=== PATIENT | male | born 1960 | race Caucasian/White ===

== ENCOUNTER 2017-10-16 10:05 | Observation (INO) | payer OTHER ==
[2017-10-16 11:03] LABS: ADD MAN DIFF? NO
[2017-10-16 11:05] LABS: WHITE BLOOD COUNT 3.3 10^3/ul (4.8-10.8)
[2017-10-16 11:05] LABS: ABNORMAL IP MESSAGE 1; BASOPHILS % 0.3 % (0.0-2.0); EOSINOPHILS # 0.1 10^3/ul (0.0-0.5); HEMATOCRIT 34.4 % (42.0-52.0); HEMOGLOBIN 11.4 g/dl (14.0-18.0); LYMPHOCYTES # 0.6 10^3/ul (0.8-2.9); LYMPHOCYTES % 16.9 % (15.0-51.0); MEAN CORPUSCULAR HEMOGLOBIN 32.5 pg (29.0-33.0); MEAN CORPUSCULAR HGB CONC 33.1 g/dl (32.0-37.0); MEAN PLATELET VOLUME 10.2 fl (7.4-10.4); MONOCYTE # 0.3 10^3/ul (0.3-0.9); MONOCYTES % 7.7 % (0.0-11.0); NEUTROPHIL # 2.3 10^3/ul (1.6-7.5); NEUTROPHILS % 70.8 % (39.0-77.0); PLATELET COUNT 159 10^3/UL (140-415); POSITIVE DIFF @See below; RED BLOOD COUNT 3.51 10^6/ul (4.70-6.10); RED CELL DISTRIBUTION WIDTH 14.2 % (11.5-14.5)
[2017-10-16 11:27] LABS: INR 1.31; PROTIME 16.5 Sec (11.9-14.9); PT RATIO 1.3
[2017-10-16 11:28] LABS: ANION GAP 27 (8-16); BLOOD UREA NITROGEN 85 mg/dl (7-20); CARBON DIOXIDE 20 mmol/L (21-31); CHLORIDE 94 mmol/L (97-110); CREATININE 9.93 mg/dl (0.61-1.24); GLUCOSE 115 mg/dl (70-220); PARTIAL THROMBOPLASTIN TIME 32.6 Sec (25.0-35.0); POTASSIUM 5.6 mmol/L (3.5-5.1); SODIUM 135 mmol/L (135-144)
[2017-10-16] MEDS ORDERED: ONDANSETRON 4 MG INJ IV (13:00)
[2017-10-16] MEDS ORDERED: ACETAMINOPHEN 325 MG TAB PO ×2 (13:00→13:30)
[2017-10-16] MEDS ORDERED: NACL 0.9% 3 ML SYG IV (13:30)
[2017-10-16] MEDS ORDERED: GLUCOSE GEL 15 GRAM TUBE BUCCAL (17:00)
[2017-10-16] MEDS ORDERED: DEXTROSE 50% 50 ML SYRINGE IV ×2 (17:00)
[2017-10-16] MEDS ORDERED: GLUCOSE GEL 15 GRAM TUBE PO ×2 (17:00)
[2017-10-16] MEDS ORDERED: GLUCAGON 1 MG INJ IM (17:00)
[2017-10-16] MEDS: INSULIN ASPART [NOVOLOG] 3 ML PEN SC ×3 (18:00→21:30)
[2017-10-16] MEDS: SEVELAMER 800 MG TAB PO (21:22)
[2017-10-16] MEDS: NIFEdipine (XL) 60 MG TAB PO (21:23)
[2017-10-17] MEDS ORDERED: hydrALAzine 20 MG INJ
[2017-10-17] MEDS: hydrALAzine 20 MG INJ IV (00:49)
[2017-10-17] MEDS: ACCU-CHEK XX (02:00)
[2017-10-17 07:21] LABS: ADD MAN DIFF? NO
[2017-10-17 07:23] LABS: ABNORMAL IP MESSAGE 1; BASOPHILS % 0.6 % (0.0-2.0); EOSINOPHILS # 0.1 10^3/ul (0.0-0.5); EOSINOPHILS % 2.9 % (0.0-7.0); HEMATOCRIT 36.1 % (42.0-52.0); HEMOGLOBIN 11.9 g/dl (14.0-18.0); LYMPHOCYTES # 0.4 10^3/ul (0.8-2.9); LYMPHOCYTES % 10.9 % (15.0-51.0); MEAN PLATELET VOLUME 10.6 fl (7.4-10.4); MONOCYTE # 0.3 10^3/ul (0.3-0.9); MONOCYTES % 7.4 % (0.0-11.0); NEUTROPHIL # 2.6 10^3/ul (1.6-7.5); NEUTROPHILS % 77.6 % (39.0-77.0); PLATELET COUNT 180 10^3/UL (140-415); POSITIVE DIFF @See below; RED BLOOD COUNT 3.72 10^6/ul (4.70-6.10); RED CELL DISTRIBUTION WIDTH 14.1 % (11.5-14.5)
[2017-10-17 07:23] LABS: WHITE BLOOD COUNT 3.4 10^3/ul (4.8-10.8)
[2017-10-17] MEDS: INSULIN ASPART [NOVOLOG] 3 ML PEN SC ×6 (07:55→17:33)
[2017-10-17] MEDS: SEVELAMER 800 MG TAB PO ×3 (08:42→17:27)
[2017-10-17] MEDS: NIFEdipine (XL) 60 MG TAB PO (08:43)
[2017-10-17 09:25] LABS: MAGNESIUM 2.1 mg/dl (1.7-2.5)
[2017-10-17 09:25] LABS: PHOSPHORUS 7.4 mg/dl (2.5-4.9)
[2017-10-17 11:51] LABS: ANION GAP 21 (8-16); BLOOD UREA NITROGEN 63 mg/dl (7-20); CALCIUM 9.4 mg/dl (8.4-10.2); CARBON DIOXIDE 24 mmol/L (21-31); CHLORIDE 97 mmol/L (97-110); CREATININE 8.43 mg/dl (0.61-1.24); GLUCOSE 107 mg/dl (70-220); POTASSIUM 4.3 mmol/L (3.5-5.1); SODIUM 138 mmol/L (135-144)
[2017-10-17 13:31] LABS: HEMOGLOBIN A1C 7.1 % (0-5.9)
[2017-10-17] MEDS ORDERED: SEVELAMER 800 MG TAB PO (17:55)
== END 2017-10-17 18:40 | disposition home or self-care (01) ==
LOC: E/R 10:05 → TEL 12:42
DX: I12.0 Hypertensive chronic kidney disease with stage 5 chronic kidney disease or end stage renal disease (principal); N18.6 End stage renal disease; Z99.2 Dependence on renal dialysis; E11.9 Type 2 diabetes mellitus without complications; D63.1 Anemia in chronic kidney disease
CPT/HCPCS: 36415; 71010; 80048; 82962; 83036; 83735; 84100; 84484; 85025; 85610; 85730; 90935; 93005; 99291-25; G0378

== ENCOUNTER 2017-11-19 09:25 | Emergency (ER) | payer MEDICAID, OTHER ==
[2017-11-19] MEDS: morphine 4 MG/ML VIAL IV (09:54)
[2017-11-19] MEDS: ONDANSETRON 4 MG INJ IV (09:54)
[2017-11-19] MEDS: FAMOTIDINE 20 MG INJ IV (09:54)
[2017-11-19 10:06] LABS: ADD MAN DIFF? NO
[2017-11-19 10:08] LABS: ABNORMAL IP MESSAGE 1; BASOPHILS % 0.3 % (0.0-2.0); EOSINOPHILS # 0.1 10^3/ul (0.0-0.5); EOSINOPHILS % 3.5 % (0.0-7.0); HEMATOCRIT 33.3 % (42.0-52.0); LYMPHOCYTES # 0.5 10^3/ul (0.8-2.9); LYMPHOCYTES % 16.5 % (15.0-51.0); MEAN CORPUSCULAR VOLUME 96.8 fl (82.0-101.0); MEAN PLATELET VOLUME 10.2 fl (7.4-10.4); MONOCYTE # 0.3 10^3/ul (0.3-0.9); MONOCYTES % 7.9 % (0.0-11.0); NEUTROPHIL # 2.3 10^3/ul (1.6-7.5); NEUTROPHILS % 71.5 % (39.0-77.0); PLATELET COUNT 140 10^3/UL (140-415); POSITIVE DIFF @See below; RED BLOOD COUNT 3.44 10^6/ul (4.70-6.10); RED CELL DISTRIBUTION WIDTH 15.6 % (11.5-14.5)
[2017-11-19 10:08] LABS: WHITE BLOOD COUNT 3.2 10^3/ul (4.8-10.8)
[2017-11-19 10:24] LABS: ALANINE AMINOTRANSFERASE 26 IU/L (13-69); ALBUMIN 3.6 g/dl (3.3-4.9); ALKALINE PHOSPHATASE 389 IU/L (42-121); ANION GAP 20 (8-16); ASPARTATE AMINO TRANSFERASE 52 IU/L (15-46); BILIRUBIN,INDIRECT 0.4 mg/dl (0-1.1); BILIRUBIN,TOTAL 0.4 mg/dl (0.2-1.3); BLOOD UREA NITROGEN 38 mg/dl (7-20); CALCIUM 9.1 mg/dl (8.4-10.2); CARBON DIOXIDE 29 mmol/L (21-31); CHLORIDE 93 mmol/L (97-110); CREATININE 6.18 mg/dl (0.61-1.24); GLUCOSE 118 mg/dl (70-220); LIPASE 200 U/L (23-300); POTASSIUM 4.6 mmol/L (3.5-5.1); SODIUM 137 mmol/L (135-144); TOTAL PROTEIN 7.2 g/dl (6.1-8.1)
== END 2017-11-19 13:55 | disposition home or self-care (01) ==
LOC: E/R 09:25
DX: C16.9 Malignant neoplasm of stomach, unspecified (principal); C79.51 Secondary malignant neoplasm of bone; E11.9 Type 2 diabetes mellitus without complications; I10 Essential (primary) hypertension; Z79.84 Long term (current) use of oral hypoglycemic drugs
CPT/HCPCS: 36415; 74176; 80053; 83690; 85025; 96374; 96375; 99285-25